=== PATIENT | male | born 2000 | race African-American/Black ===

== ENCOUNTER 2021-12-04 13:25 | Emergency (ER) | payer SELFPAY ==
[~2021-12-04] VITALS: Ht 162.6 cm; Wt 49.9 kg
--- NOTE | 2021-12-04 13:47 | NUR ---
To ER bed 13, c/o nausea vomiting, weak x 1 week, had a drink last Monday, per patient he doesn't usually drink, aaox3, breathing even and non labored, connected to monitor, awaiting md orders
--- NOTE | 2021-12-04 13:55 | NUR ---
IV LINE IS ESTABLISHED, BLOOD SPECIMEN COLLECTED AND SENT TO THE LAB. THE LINE IS SALINE LOCKED.
--- NOTE | 2021-12-04 13:56 | NUR ---
The patient is presented to ER for c/o nausea vomiting, weak x 1 week. The patient is alert and oriented x4. In room air and denies SOB. Respiration regular and unlabored. Will continue to monitor the patient.
[2021-12-04] MEDS ORDERED: IV NS 0.9% 1,000 ML BAG IV ONE ×2 (14:00→17:00)
[2021-12-04 14:07] LABS: BASOPHILS % (AUTO) 0.4 % (0.0-2.0); EOSINOPHILS % (AUTO) 0.7 % (0.0-6.0); HEMATOCRIT 52 % (39-51); HEMOGLOBIN 17.8 g/dL (13.5-17.5); LYMPHOCYTES # (AUTO) 1.5 K/uL (0.8-4.8); MEAN CORPUSCULAR HGB CONC 35 g/dl (31.0-36.0); MEAN CORPUSCULAR VOLUME 89 fL (80-96); MONOCYTES # (AUTO) 0.8 K/uL (0.1-1.30); MONOCYTES % (AUTO) 9.5 % (2.0-12.0); NEUTROPHILS # (AUTO) 5.7 K/uL (1.8-8.9); NEUTROPHILS % (AUTO) 71.4 % (43.0-81.0); PLATELET COUNT (AUTO) 263 K/uL (150-450)
[2021-12-04 14:24] LABS: BILIRUBIN,DIRECT 0.4 mg/dL (0.0-0.2); BILIRUBIN,TOTAL 4.2 mg/dL (0.2-1.0); CALCIUM, SERUM 10.1 mg/dL (8.5-10.1); CREATININE 1.2 mg/dL (0.6-1.3); POTASSIUM 3.8 mmol/L (3.5-5.1); TOTAL PROTEIN, SERUM 8.6 g/dL (6.4-8.2)
--- NOTE | 2021-12-04 14:29 | NUR ---
[employer] school technology teacher at the bedside
[2021-12-04] MEDS ORDERED: FAMOTIDINE/PF INJ 20 MG/2 ML VIAL IV ONE ×2 (15:00→15:10)
[2021-12-04 15:16] LABS: BILIRUBIN,URINE MODERATE (NEGATIVE); COLOR,URINE YELLOW (YELLOW); LEUKOCYTE ESTERASE ,URINE NEGATIVE (NEGATIVE); NITRITE, URINE NEGATIVE (NEGATIVE); PROTEIN,URINE TRACE mg/dl (NEGATIVE); UGLUCOSE NEGATIVE (NEGATIVE)
[2021-12-04] MEDS ORDERED: ONDANSETRON HCL/PF 4 MG/2 ML VIAL ONE (15:28)
[2021-12-04] MEDS ORDERED: ONDANSETRON HCL/PF - ER 4 MG/2 ML VIAL IV ONE (15:30)
[2021-12-04 15:34] LABS: BACTERIA,URINE 1+ /HPF (None Seen); MUCUS,URINE Many /LPF (None Seen); WBC,URINE 0-2 /HPF (0-3)
[2021-12-04] MEDS ORDERED: diphenhydrAMINE HCL 50 MG/ML VIAL IV ONE (17:00)
[2021-12-04] MEDS ORDERED: PROCHLORPERAZINE EDISYLATE 10 MG/2 ML VIAL IVP ONE (17:00)
[2021-12-04] MEDS ORDERED: diphenhydrAMINE HCL 50 MG/ML VIAL ONE ×2 (17:02→17:26)
[2021-12-04] MEDS ORDERED: PROCHLORPERAZINE EDISYLATE 10 MG/2 ML VIAL ONE ×2 (17:02→17:27)
--- NOTE | 2021-12-04 18:30 | NUR ---
po challenge tolerated well
[2021-12-04 19:08] VITALS: BP 118/62
--- NOTE | 2021-12-04 19:08 | NUR ---
IV removed. Catheter intact and site benign. Pressure and 4x4 applied to site. No bleeding noted.Patient discharged to home in stable condition. Written and verbal after care instructions given. Patient verbalizes understanding of instruction.
[2021-12-05] MEDS ORDERED: ONDA4TAB11 SL (18:08)
[2021-12-05] MEDS ORDERED: METO10TA3 PO (18:17)
[2021-12-05] MEDS ORDERED: LEVO25TA7 PO (18:39)
[2021-12-05] MEDS ORDERED: ALBU1.257 IH (18:39)
[2021-12-05] MEDS ORDERED: PANT40TA2 PO (18:43)
== END 2021-12-04 19:08 | disposition home or self-care (01) ==
LOC: ER 13:45
DX: R10.10 Upper abdominal pain, unspecified (principal); R11.10 Vomiting, unspecified; F12.90 Cannabis use, unspecified, uncomplicated; F10.10 Alcohol abuse, uncomplicated; J45.909 Unspecified asthma, uncomplicated
CPT/HCPCS: 36415; 71045; 80048; 80076; 80307; 80320; 81001; 83690; 84484 ×2; 85025; 93005; 96361; 96374; 96375; 99285; J0780; J1200; J2405; J3490; J7030 ×3; G0480

== ENCOUNTER 2021-12-05 17:43 | Inpatient (IN) | payer OTHER ==
[~2021-12-05] VITALS: Ht 162.6 cm; Wt 52.6 kg
--- NOTE | 2021-12-05 17:55 | NUR ---
BIBMOM FOR VOMITING X 8 DAYS. PT WAS SEEN HERE YESTERDAY. AMBULATORY, PLACED ON BED, AAOX4, BREATHING EVEN AND UNLABORED.
[2021-12-05] MEDS ORDERED: ONDA4TAB11 SL (18:08)
[2021-12-05] MEDS ORDERED: METO10TA3 PO (18:17)
--- NOTE | 2021-12-05 18:24 | NUR ---
MOVE SHEET SUBMITTED.
--- NOTE | 2021-12-05 18:27 | NUR ---
IV LINE ESTABLISHED ON LAC #20, BLOOD DRAWN AND SENT TO LAB. COVID SWAB DONE AND SENT TO LAB.
[2021-12-05] MEDS ORDERED: PROCHLORPERAZINE EDISYLATE 10 MG/2 ML VIAL IVP ONE (18:30)
[2021-12-05] MEDS ORDERED: diphenhydrAMINE HCL 50 MG/ML VIAL IV ONE (18:30)
[2021-12-05] MEDS ORDERED: IV NS 0.9% 1,000 ML BAG IV ONE (18:30)
[2021-12-05] MEDS ORDERED: diphenhydrAMINE HCL 50 MG/ML VIAL ONE (18:33)
[2021-12-05] MEDS ORDERED: PROCHLORPERAZINE EDISYLATE 10 MG/2 ML VIAL ONE (18:33)
[2021-12-05] MEDS ORDERED: ALBU1.257 IH (18:39)
[2021-12-05] MEDS ORDERED: LEVO25TA7 PO (18:39)
[2021-12-05] MEDS ORDERED: PANT40TA2 PO (18:43)
[2021-12-05 19:24] LABS: CALCIUM, SERUM 8.9 mg/dL (8.5-10.1); CREATININE 1.1 mg/dL (0.6-1.3)
--- NOTE | 2021-12-05 19:26 | NUR ---
DR. APONTE SPEAKING WITH DR. CORRAL.
--- NOTE | 2021-12-05 19:31 | NUR ---
[facility] CALLED TRAUMA SURGEON PAGED.
[2021-12-05 19:46] LABS: BASOPHILS % (AUTO) 0.5 % (0.0-2.0); EOSINOPHILS % (AUTO) 0.2 % (0.0-6.0); HEMATOCRIT 52 % (39-51); HEMOGLOBIN 17.6 g/dL (13.5-17.5); LYMPHOCYTES # (AUTO) 1.5 K/uL (0.8-4.8); LYMPHOCYTES % (AUTO) 20.7 % (20.0-44.0); MEAN CORPUSCULAR HGB CONC 34 g/dl (31.0-36.0); MEAN CORPUSCULAR VOLUME 91 fL (80-96); MONOCYTES # (AUTO) 0.5 K/uL (0.1-1.30); MONOCYTES % (AUTO) 7.2 % (2.0-12.0); NEUTROPHILS # (AUTO) 5.2 K/uL (1.8-8.9); NEUTROPHILS % (AUTO) 71.4 % (43.0-81.0); PLATELET COUNT (AUTO) 253 K/uL (150-450); RED BLOOD CELL COUNT(AUTO) 5.73 MIL/uL (4.5-6.0); WHITE BLOOD COUNT (AUTO) 7.3 K/uL (4.3-11.0)
[2021-12-05 20:21] LABS: POTASSIUM 3.3 mmol/L (3.5-5.1)
--- NOTE | 2021-12-05 20:58 | NUR ---
MS [id number]
[2021-12-05] MEDS: IV NS 0.9% 1,000 ML IV SCH (21:00)
[2021-12-05] MEDS ORDERED: ZOLPIDEM TARTRATE 5 MG TABLET PO PRN (21:00)
[2021-12-05] MEDS ORDERED: PROCHLORPERAZINE EDISYLATE 10 MG/2 ML VIAL IVP PRN (21:00)
[2021-12-05] MEDS ORDERED: Z GUARD REMEDY 4 OZ OINT TP PRN (21:00)
[2021-12-05] MEDS ORDERED: MAG HYDROX/AL HYDROX/SIMETH 30 ML UDC PO PRN (21:00)
[2021-12-05] MEDS ORDERED: MAGNESIUM HYDROXIDE 30 ML UDC PO PRN (21:00)
[2021-12-05] MEDS ORDERED: ACETAMINOPHEN 325 MG TABLET PO PRN (21:00)
--- NOTE | 2021-12-05 21:17 | NUR ---
called for report, RN will call back.
--- NOTE | 2021-12-05 21:31 | NUR ---
REPORT GIVEN TO PALAK FLAHERTY [id number] FOR EMMA
--- NOTE | 2021-12-05 21:31 | NUR ---
Tiki stanton in [facility] - 12/05/21 at 2131 by TRACY REPORT GIVEN TO PALAK BECKHAM EMMA
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
[2021-12-05] MEDS: POTASSIUM CL. PREMIX PERIPHER. 50 ML IV SCH ×2 (22:08→22:54)
[2021-12-05] MEDS: ONDANSETRON HCL/PF 4 MG/2 ML VIAL IVP PRN (23:15)
--- NOTE | 2021-12-05 23:44 | NUR ---
MS RN NOTE PATIENT C/O CRUSHING CHEST PAIN, N/V WITH X4 EPISODES OF EMESIS NOW. UNRELIEVED WITH ZOFRAN. MADE CHANGE NURSE PALAK AWARE, CHARGE SAID TO ORDER STAT EKG. WILL MONITOR. PATIENT STARTED ON O2 2LPM VIA NC FOR COMFORT. SATURATION 100%.
[2021-12-06] VITALS: BP 115/73
[2021-12-06] MEDS: POTASSIUM CL. PREMIX PERIPHER. 50 ML IV SCH ×2 (00:45→02:38)
[2021-12-06 01:05] VITALS: BP 115/73
--- NOTE | 2021-12-06 01:12 | NUR ---
MS RN NOTE EKG CAME OUT SR. REPORTED TO PRESS WORKER HELPER DOCTOR, DR. LIZAMA. NO NEW ORDERS PER DOCTOR.
[2021-12-06 06:07] LABS: BASOPHILS # (AUTO) 0.1 K/uL (0.0-0.2); BASOPHILS % (AUTO) 0.7 % (0.0-2.0); EOSINOPHILS % (AUTO) 1.4 % (0.0-6.0); HEMATOCRIT 43 % (39-51); HEMOGLOBIN 14.5 g/dL (13.5-17.5); LYMPHOCYTES # (AUTO) 2.8 K/uL (0.8-4.8); MEAN CORPUSCULAR HGB CONC 34 g/dl (31.0-36.0); MEAN CORPUSCULAR VOLUME 90 fL (80-96); MONOCYTES # (AUTO) 0.9 K/uL (0.1-1.30); MONOCYTES % (AUTO) 10.9 % (2.0-12.0); NEUTROPHILS # (AUTO) 4.2 K/uL (1.8-8.9); PLATELET COUNT (AUTO) 195 K/uL (150-450); RED BLOOD CELL COUNT(AUTO) 4.75 MIL/uL (4.5-6.0)
[2021-12-06] MEDS: IV NS 0.9% 1,000 ML IV SCH (07:20)
--- NOTE | 2021-12-06 07:20 | NUR ---
ms rn note NEEDS ATTENDED. REPORT GIVEN TO ANI FOR CONTINUITY OF CARE.
--- NOTE | 2021-12-06 07:30 | NUR ---
MS RN NOTES RECEIVED PATIENT AWAKE IN BED. ALERT AND ORIENTED TIMES 4. NO PAIN NOTED. NO SOB NOTED. ABLE TO MAKE NEEDS KNOWN. NO EPISODE OF VOMITING AT THIS TIME. NO NAUSEA NOTED. LAC IV SITE # 20 INTACT.ELEVATE HEAD OF THE BED FOR FOR ASPIRATION PRECAUTION. ALL NEEDS ATTENDED. ALL SAFETY PRECAUTION IN PLACE. BED LOCKED IN THE LOWEST POSITION. CALL LIGHT AND TABLE IN EASY REACH. WILL CONTINUE TO MONITOR.
[2021-12-06 07:37] LABS: CALCIUM, SERUM 8.5 mg/dL (8.5-10.1); CREATININE 1.1 mg/dL (0.6-1.3); MAGNESIUM 1.9 mg/dL (1.8-2.4); PHOSPHORUS 3.5 mg/dL (2.5-4.9); POTASSIUM 3.9 mmol/L (3.5-5.1)
[2021-12-06 08:31] VITALS: BP 107/56
[2021-12-06] MEDS: LEVOTHYROXINE SODIUM 25 MCG TABLET PO SCH (08:46)
[2021-12-06] MEDS: PANTOPRAZOLE 40 MG VIAL IV SCH (08:50)
[2021-12-06] MEDS: ONDANSETRON HCL/PF 4 MG/2 ML VIAL IVP PRN ×2 (09:36→19:37)
[2021-12-06] MEDS: IV D5/ 0.9% NACL 1,000 ML IV SCH ×2 (09:57→23:09)
[2021-12-06 13:41] LABS: ALBUMIN 3.4 g/dL (3.4-5.0); BILIRUBIN,DIRECT 0.5 mg/dL (0.0-0.2); BILIRUBIN,TOTAL 2.9 mg/dL (0.2-1.0); TOTAL PROTEIN, SERUM 6.3 g/dL (6.4-8.2)
[2021-12-06 16:31] VITALS: BP 117/48
--- NOTE | 2021-12-06 18:44 | NUR ---
NM: GASTRIC EMPTYING WAS COMPLETED:TECH:RB.
--- NOTE | 2021-12-06 19:30 | NUR ---
RN OPENING NOTES RECEIVED PT IN BED, AWAKE WITH MOTHER AT BEDSIDE. AOx4, ABLE TO MAKE NEEDS KNOWN. ON RA AND TOLERATING WELL. NO SOB NOTED. NO S/SX OF RESPIRATORY DISTRESS NOTED. IV ACCESS IN LAC #20G RUNNING D5NS @ 75 ML/HR. SAFETY PRECAUTIONS IN PLACE: BED IN LOWEST, LOCKED POSITION, SIDERAILS UPx2, AND BRAKES ON. TABLE AND CALL LIGHT WITHIN REACH. WILL CONTINUE TO MONITOR.
--- NOTE | 2021-12-06 19:30 | NUR ---
MS RN CLOSING NOTES PATIENT AWAKE IN BED. ALERT AND ORIENTED TIMES 4.MOTHER AT HIS BED SIDE. NO PAIN NOTED. NO SOB NOTED. ABLE TO MAKE NEEDS KNOWN. NO EPISODE OF VOMITING AT THIS TIME. NO NAUSEA NOTED. LAC IV SITE # 20 INTACT RUNNING D5NS AT 75 ML/HR.ELEVATE HEAD OF THE BED FOR FOR ASPIRATION PRECAUTION. ALL NEEDS ATTENDED. ALL SAFETY PRECAUTION IN PLACE. BED LOCKED IN THE LOWEST POSITION. CALL LIGHT AND TABLE IN EASY REACH. WILL ENDORSE FOR EMMA.
[2021-12-06] MEDS ORDERED: METOCLOPRAMIDE HCL 10 MG/2 ML VIAL IV ONE (22:00)
--- NOTE | 2021-12-06 22:16 | NUR ---
RN NOTES PT STILL HAVING VOMITTING EPISODE AFTER BEING GIVEN ZOFRAN. CONTACTED LOIS CARO WHO ORDERED REGLAN 10 MG IV ONCE. ADMINISTERED TO PATIENT. EDUCATION GIVEN. WILL CONTINUE TO MONITOR.
--- NOTE | 2021-12-07 06:46 | NUR ---
RN CLOSING NOTES PT IN BED, ASLEEP, AWAKENS TO VERBAL STIMULI. AOx4, ABLE TO MAKE NEEDS KNOWN. ON RA AND TOLERATING WELL. NO SOB NOTED. NO S/SX OF RESPIRATORY DISTRESS NOTED. IV ACCESS IN LAC #20G RUNNING D5NS @ 75 ML/HR. ALL ORDERS CARRIED OUT. ALL NEEDS MET. PT KEPT CLEAN AND DRY. TREATED VOMITING DURING SHIFT. SAFETY PRECAUTIONS IN PLACE: BED IN LOWEST, LOCKED POSITION, SIDERAILS UPx2, AND BRAKES ON. TABLE AND CALL LIGHT WITHIN REACH. WILL ENDORSE TO ONCOMING SHIFT FOR EMMA.
[2021-12-07] MEDS: LEVOTHYROXINE SODIUM 25 MCG TABLET PO SCH (07:30)
--- NOTE | 2021-12-07 07:40 | NUR ---
MS RN OPENING NOTES PATIENT RECEIVED IN BED AND SLEEPING. OBSERVED ON RA AND TOLERATING WELL. NO SOB OR S/SX OF RESPIRATORY DISTRESS OBSERVED AT THIS TIME. IV ACCESS IN LAC PATENT AND RUNNING WELL. SAFETY PRECAUTIONS IN PLACE WITH BED IN LOWEST POSITION, LOCKED AND SIDERAILS UPx2. CALL LIGHT WITHIN REACH. WILL CONTINUE TO MONITOR.
[2021-12-07 08:00] VITALS: BP 132/66
[2021-12-07] MEDS: PANTOPRAZOLE 40 MG VIAL IV SCH (09:32)
[2021-12-07] MEDS: IV D5/ 0.9% NACL 1,000 ML IV SCH (12:38)
[2021-12-07 16:00] VITALS: BP 117/55
--- NOTE | 2021-12-07 18:45 | NUR ---
RN CLOSING NOTES PATIENT REMAINED IN BED THROUGHOUT SHIFT, HE CONTINUES ON BEDREST STATUS. REMAINS NPO AND UNABLE TO TOLERATE ORAL INTAKE. CONTINUES ON RA AND TOLERATING WELL. NO SOB OR S/SX OF RESPIRATORY DISTRESS OBSERVED DURING SHIFT. IV ACCESS IN LAC CONTINUES TO BE PATENT AND RUNNING WELL. SAFETY PRECAUTIONS REMAIN IN PLACE WITH BED IN LOWEST POSITION, LOCKED AND SIDERAILS UPx2. CALL LIGHT WITHIN REACH. WILL CONTINUE TO MONITOR.
--- NOTE | 2021-12-07 19:30 | NUR ---
NIMO FULLY AWAKE, BROTHER AT BEDSIDE. OR STAFF CAME, PATIENT FOR EGD. PATIENT WANTED HIS MOTHER TO SIGN CONSENT STATED HE IS TOO WEAK. MOTHER OF PATIENT TO COME TO SIGN CONSENT, OR STAFF LEFT, STATED WILL TAKE PATIENT IN FEW MINUTES. IV TO HL FOR NOW, CHECKLIST STARTED. STAT OTHER LABS ORDERED PER CHECKLIST.
--- NOTE | 2021-12-07 19:45 | NUR ---
RN MS NOTES PT IN BED, AWAKE, ALERT AND ORIENTED, PER SURGERY, NO SCHEDULE FOR EGD TODAY, PT'S MOM WENT HOME, THEN SURGERY STAFF CAME TO FLOOR TILING PROFESSIONAL PT FOR EGD, PT INFORMED, PT'S MOM INFORMED AND SHE IS ON HER WAY BACK TO THE HOSPITAL TO BE WITH PT WHILE HE SIGNS THE CONSENT FORMS, ENDORSED TO SOUP MIXER NURSE FOR CONTINUITY OF CARE.
[2021-12-07 20:00] VITALS: BP 118/69
--- NOTE | 2021-12-07 20:15 | NUR ---
MSRN PATIENT S' MOTHER CAME CONSENTS SIGNED, WANTED TO SPEAK TO ANESTHESIOLOGIST.
--- NOTE | 2021-12-07 22:10 | NUR ---
MSRN CN NOTIFIED, PER DR APONTE TO RESCHED PATIENT POSSIBLY IN AM FOR EGD. MOTHER AND PATIENT NOTIFIED . WILL KEEP PATIENT NPO
[2021-12-08] MEDS: IV D5/ 0.9% NACL 1,000 ML IV SCH ×2 (01:49→15:51)
--- NOTE | 2021-12-08 04:44 | NUR ---
MSRN ASLEEP EASILY AWAKENED. PRESENT IVFF INFUSING WELL. NO NEEDS MADE.
[2021-12-08 06:37] LABS: BASOPHILS % (AUTO) 0.6 % (0.0-2.0); EOSINOPHILS % (AUTO) 4.1 % (0.0-6.0); HEMATOCRIT 42 % (39-51); HEMOGLOBIN 14.3 g/dL (13.5-17.5); LYMPHOCYTES # (AUTO) 2.4 K/uL (0.8-4.8); LYMPHOCYTES % (AUTO) 37.9 % (20.0-44.0); MEAN CORPUSCULAR HGB CONC 34 g/dl (31.0-36.0); MEAN CORPUSCULAR VOLUME 89 fL (80-96); MONOCYTES # (AUTO) 0.8 K/uL (0.1-1.30); MONOCYTES % (AUTO) 12.1 % (2.0-12.0); NEUTROPHILS # (AUTO) 2.9 K/uL (1.8-8.9); NEUTROPHILS % (AUTO) 45.3 % (43.0-81.0); PLATELET COUNT (AUTO) 196 K/uL (150-450); RED BLOOD CELL COUNT(AUTO) 4.69 MIL/uL (4.5-6.0); WHITE BLOOD COUNT (AUTO) 6.3 K/uL (4.3-11.0)
--- NOTE | 2021-12-08 06:40 | NUR ---
MSRN IVF CONTINUED, KEPT NPO. EGD SCHED PENDING
[2021-12-08 07:00] LABS: ALBUMIN 3.4 g/dL (3.4-5.0); BILIRUBIN,TOTAL 2.4 mg/dL (0.2-1.0); CALCIUM, SERUM 8.6 mg/dL (8.5-10.1); CREATININE 0.9 mg/dL (0.6-1.3); MAGNESIUM 1.8 mg/dL (1.8-2.4); POTASSIUM 3.1 mmol/L (3.5-5.1); TOTAL PROTEIN, SERUM 6.2 g/dL (6.4-8.2)
--- NOTE | 2021-12-08 07:20 | NUR ---
RN MS OPENING NOTES: RECEIVED PT IN BED, AWAKE, ALERT AND ORIENTED X4. PATIENT IN NO APPARENT DISTRESS OR DISCOMFORT. ABLE TO MAKE NEEDS KNOWN. PATIENT ON RA. BREATHING EVEN AND UNLABORED. VS STABLE. PT. HAS BRP AND IS ABLE TO GO OUT OF BED WITHOUT ANY ISSUES. IV ON LEFT AC 20G AND RUNNING D5NS AT 75ML/HR. NO REDNESS, INFLAMMATION OR SIGNS OF INFILTRATION ON IV SITE. BED IN LOWEST AND LOCKED POSITION. RAILS UP X2. CALL LIGHT WITHIN REACH. WILL CONTINUE TO MONITOR.
[2021-12-08] MEDS: LEVOTHYROXINE SODIUM 25 MCG TABLET PO SCH (07:30)
[2021-12-08 08:00] VITALS: BP 113/51
[2021-12-08] MEDS: PANTOPRAZOLE 40 MG VIAL IV SCH (08:27)
[2021-12-08] MEDS: POTASSIUM CL. PREMIX PERIPHER. 50 ML IV SCH ×4 (10:27→14:54)
--- NOTE | 2021-12-08 13:00 | NUR ---
PT. WAS CHANGED FROM NPO TO CLEAR LIQUID DIET STARTING LUNCH. PT. CONSUMED 100% OF MEAL BUT THREW UP AFTER A FEW MINUTES OF FINISHING HIS MEAL. PT. STATES "IT FEELS LIKE THE FOOD IS NOT GOING DOWN. BUT AT LEAST I HAVE SOME ENERGY NOW". PT. REFUSED TO TAKE ANY MEDICATION. WILL INFORM MD AND CONTINUE TO MONITOR.
--- NOTE | 2021-12-08 13:27 | NUR ---
MS RN NOTE: INFORMED DR. DELGADO ABOUT PT. VOMITTING AFTER LUNCH WHEN CHANGED FROM NPO TO CLEAR LIQUID. SAID TO JUST CONTINUE CLEAR LIQUID DIET FOR NOW.
[2021-12-08 16:00] VITALS: BP 103/70
[2021-12-08] MEDS: ENSURE CLEAR 237 ML LIQUID (MIX BERRY) PO SCH (17:09)
--- NOTE | 2021-12-08 19:20 | NUR ---
MS RN CLOSING NOTES PT REMAINS IN BED, AWAKE, ALERT AND ORIENTED X4. MOTHER AT BEDSIDE. ON ROOM AIR. NO SIGNS OF RESPIRATORY DISTRESS. BREATHING EVEN AND UNLABORED. PATIENT IN NO APPARENT DISTRESS OR DISCOMFORT. ABLE TO MAKE NEEDS KNOWN. VS STABLE. PT. ABLE TO AMBULATE TO THE RESTROOM WITH MIN ASSIST. PT. STARTED ON LIQUID DIET AT NOON BUT HAVING MULTIPLE EPISODES OF EMESIS. PT. STATES HE FEELS A LITTLE WEAK BUT BETTER COMPARED TO WHEN HE WAS NPO. PT. STATES, HE FEELS LIKE EVERYTHING THAT HE CONSUMES DOESN'T WANT TO GO DOWN. DENIES ANY DIZZINESS OR NAUSEA. MD NOTIFIED AND ADVISED TO JUST CONTINUE CLEAR LIQUID DIET. IV ON LEFT AC 20G AND RUNNING D5NS AT 75ML/HR. NO REDNESS, INFLAMMATION OR SIGNS OF INFILTRATION ON IV SITE. BED IN LOWEST AND LOCKED POSITION. RAILS UP X2. CALL LIGHT WITHIN REACH. WILL CONTINUE TO MONITOR.
--- NOTE | 2021-12-08 19:48 | NUR ---
MS RN OPENING NOTES: RECEIVED PATIENT AWAKE IN BED, ACCOMPANIED BY FAMILY BED IN LOW POSITION CALL LIGHTS WITHIN REACH, NO COMPLAIN OF PAIN AND DISCOMFORT AT THIS TIME ON ROOM AIR SATURATING WELL, PATIENT IS A/OX4, AMBULATORY, ABLE TO MAKE NEEDS KNOWN, WITH IV LINE AT LFA#20 WITH D5NS@75ML/HOUR INFUSING WELL, PATIENT KEPT CLEAN AND DRY ALL NEEDS MET WILL CONTINUE TO MONITOR.
[2021-12-08 20:00] VITALS: BP 123/78
[2021-12-09] MEDS: ONDANSETRON HCL/PF 4 MG/2 ML VIAL IVP PRN (00:19)
[2021-12-09] MEDS: IV D5/ 0.9% NACL 1,000 ML IV SCH ×2 (05:11→18:04)
--- NOTE | 2021-12-09 06:16 | NUR ---
MS RN CLOSING NOTES: PATIENT SLEEP IN BED COMFORTABLY, AROUSABLE TO VERBAL STIMULI, BED IN LOW POSITION CALL LIGHTS WITHIN REACH, NO COMPLAIN OF PAIN AND DISCOMFORT AT THIS TIME , AMBULATORY, A/OX4 ABLE TO MAKE NEEDS KNOWN, ON ROOM AIR SATURATING WELL, PATIENT KEPT CLEAN AND DRY ALL NEEDS MET, ENDORSE TO INCOMING SHIFT.
[2021-12-09 07:01] LABS: CALCIUM, SERUM 8.6 mg/dL (8.5-10.1); POTASSIUM 3.3 mmol/L (3.5-5.1)
[2021-12-09] MEDS: LEVOTHYROXINE SODIUM 25 MCG TABLET PO SCH (07:30)
[2021-12-09 08:00] VITALS: BP 97/47
[2021-12-09] MEDS: ENSURE CLEAR 237 ML LIQUID (MIX BERRY) PO SCH ×3 (08:00→17:00)
--- NOTE | 2021-12-09 08:01 | NUR ---
MS RN OPENING NOTES: RECEIVED PATIENT AWAKE IN BED, ALERT AND ORIENTED X 4 AND ABLE TO VERBALIZED NEEDS. NO SOB OR CARDIAC DISTRESS NOTED, AFEBRILE AND ON ROOM AIR TOLERATING WELL. NO EPISODES OF NAUSEA AT THIS TIME. DENIES PAIN AT THIS TIME, WITH IV LINE AT LFA#20 WITH D5NS@75ML/HOUR INFUSING WELL, KEPT DRY, CLEAN AND COMFORTABLE. SAFETY PRECAUTIONS MAINTAINED: BED IN LOWEST AND IN LOCKED POSITION, SIDE RAILS UP X 2. CALL LIGHT IN EASY REACH FOR HELP/ASSISTANCE.
[2021-12-09] MEDS: PANTOPRAZOLE 40 MG VIAL IV SCH (09:43)
[2021-12-09] MEDS ORDERED: POTASSIUM CHLORIDE 20 MEQ POWDER PACKET PO SCH (10:00)
[2021-12-09] MEDS ORDERED: POTASSIUM CL. PREMIX PERIPHER. 50 ML IV ONE ×2 (10:30→12:00)
--- NOTE | 2021-12-09 12:10 | NUR ---
RN NOTES: PATIENT VOMITED 2X YELLOWISH COLORED VOMITUS AND PER PATIENT HE'S HAVING STOMACH UPSET, INFORMED DR CHE, AND PER DR CHE STATED "IM AWARE".
--- NOTE | 2021-12-09 14:29 | NUR ---
RN NOTES: INFORMED DR CHE THAT MOTHER OF THE PATIENT MS LANCE WANTED TO TALL TO HIM, RN GAVE EPIC GROUP NUMBER AND DR CHE MADE AWARE.
[2021-12-09 16:00] VITALS: BP 97/50
--- NOTE | 2021-12-09 18:46 | NUR ---
MS RN CLOSING NOTES: PATIENT AWAKE IN BED WITH FAMILY AT BED SIDE , ALERT AND ORIENTED X 4 AND ABLE TO VERBALIZED NEEDS. NO SOB OR CARDIAC DISTRESS NOTED, AFEBRILE AND ON ROOM AIR TOLERATING WELL. NO EPISODES OF NAUSEA AT THIS TIME. DENIES PAIN AT THIS TIME, WITH IV LINE AT LFA#20 WITH D5NS@75ML/HOUR INFUSING WELL, KEPT DRY, CLEAN AND COMFORTABLE. SAFETY PRECAUTIONS MAINTAINED: BED IN LOWEST AND IN LOCKED POSITION, SIDE RAILS UP X 2. CALL LIGHT IN EASY REACH FOR HELP/ASSISTANCE. ENDORSED TO SCROLL SHEAR OPERATOR FOR EMMA.
--- NOTE | 2021-12-09 19:54 | NUR ---
MS RN OPENING NOTES; RECEIVED PATIENT AWAKE IN BED ACCOMPANIED BY FAMILY, BED IN LOW POSITION CALL LIGHTA WITHIN REACH, ON ROOM AIR SATURATING WELL, PATIENT IS A/OX4 AMBULATORY ABLE TO MAKE NEEDS KNOWN, WITH IV LINE AT LFA#20 WITH ONGOING D5 [id number]/HR INFUSING WELL, PATIENT KEPT CELAN AND DRY ALL NEEDS MET WILL CONTINUE TO MONITOR.
[2021-12-09 20:00] VITALS: BP 115/48
[2021-12-10] MEDS: LEVOTHYROXINE SODIUM 25 MCG TABLET PO SCH (07:30)
--- NOTE | 2021-12-10 07:30 | NUR ---
RN MS NOTES PT IN BED, AWAKE, ALERT AND ORIENTED, PAIN MEDICATION GIVEN FOR PAIN MANAGEMENT ORDERED, NOT IN DISTRESS, TOLERATES ROOM AIR, IV FLUIDS INFUSING WELL, CALL LIGHT WITHIN REACH, ABLE TO AMBULATE TO THE BATHROOM, NEEDS ATTENDED.
[2021-12-10 07:42] LABS: CALCIUM, SERUM 8.3 mg/dL (8.5-10.1); CREATININE 0.9 mg/dL (0.6-1.3); POTASSIUM 3.3 mmol/L (3.5-5.1)
--- NOTE | 2021-12-10 07:49 | NUR ---
MS RN CLOSING NOTES: PATIENT SLEEP IN BED COMFORTABLY, AROUSABLE TO VERBAL STIMULI, BED IN LOW POSITION CALL LIGHTS WITHIN REACH, NO COMPLAIN OF PAIN AND DISCOMFORT AT THIS TIME ON ROOM AIR SATURATING WELL, PATIENT IS A/OX4 AMBULATORY ABLE TO MAKE NEEDS KNOWN , WITH ONGOING IV AT LFA#20 WITH D5NS @75ML/HR INFUSING WELL, PATIENT KEPT CLEAN AND DRY ALL NEEDS MET ENDORSE TO INCOMING SHIFT.
[2021-12-10 08:00] VITALS: BP 103/70
[2021-12-10] MEDS: PANTOPRAZOLE 40 MG VIAL IV SCH (09:27)
[2021-12-10] MEDS: ENSURE CLEAR 237 ML LIQUID (MIX BERRY) PO SCH ×3 (09:28→16:34)
[2021-12-10] MEDS: IV D5/ 0.9% NACL 1,000 ML IV SCH ×2 (09:38→21:05)
[2021-12-10] MEDS: POTASSIUM CL. PREMIX PERIPHER. 50 ML IV SCH ×2 (11:16→16:37)
[2021-12-10 16:00] VITALS: BP 100/66
--- NOTE | 2021-12-10 18:35 | NUR ---
RN CLOSING NOTE PATIENT AO X4. OBSERVED AWAKE AND INTERMITTENTLY SLEEPING THROUGHOUT SHIFT. UNABLE TO TOLERATE CLEAR LIQUID DIET, HE HAD EMESIS EPISODE X2. BACK ON NPO STATUS, AND EXPECTED TO HAVE EGD PROCEDURE DONE ( NO SPECIFIC TIME KNOWN). UNABLE TO TOLERATE IV POTASSIUM VIA LFA IV SITE. PATIENT STATED IV "BURNED" UPON ADMINISTRATION. DASHAWN-MIDLINE #18G PLACED. TOLERATED PROCEDURE WELL. MEDICATION ADMINISTERED VIA NEW SITE. TOLERATED WELL. ALL SAFETY MEASURES IN PLACE WITH BED AT LOWEST POSITION, LOCKED & AND SIDERAIL UP X2. CALL LIGHT WITHIN REACH. WILL CONT TO MONITOR.
--- NOTE | 2021-12-10 19:30 | NUR ---
MS RN OPENING NOTES RECEIVED PT LYING IN BED AWAKE. MOTHER ON BEDSIDE. A/O X4. NO SOB OR NOTED, TOLERATING ROOM AIR WELL. CURRENTLY NPO. DENIES PAIN OR DISCOMFORT AT THIS TIME. HAS LEFT FOREARM IV ACCESS #20G WITH D5NS RUNNING AT 75 ML/HR. SWELLING AND TENDERNESS NOTED AROUND THE IV SITE. REMOVED IV AND ELEVATED ARM. HAS LEFT UPPER ARM MIDLINE #18G AND SALINE LOCKED. NO S/S OF INFILTRATION NOTED. SAFETY PRECAUTIONS IN PLACE. WILL CONTINUE PLAN OF CARE.
[2021-12-10 20:00] VITALS: BP 101/87
[2021-12-11 06:54] LABS: BASOPHILS % (AUTO) 0.5 % (0.0-2.0); EOSINOPHILS % (AUTO) 4.9 % (0.0-6.0); HEMATOCRIT 41 % (39-51); HEMOGLOBIN 13.7 g/dL (13.5-17.5); LYMPHOCYTES # (AUTO) 1.7 K/uL (0.8-4.8); LYMPHOCYTES % (AUTO) 37.3 % (20.0-44.0); MEAN CORPUSCULAR HGB CONC 34 g/dl (31.0-36.0); MEAN CORPUSCULAR VOLUME 89 fL (80-96); MONOCYTES # (AUTO) 0.7 K/uL (0.1-1.30); MONOCYTES % (AUTO) 14.7 % (2.0-12.0); NEUTROPHILS % (AUTO) 42.6 % (43.0-81.0); PLATELET COUNT (AUTO) 221 K/uL (150-450); RED BLOOD CELL COUNT(AUTO) 4.58 MIL/uL (4.5-6.0); WHITE BLOOD COUNT (AUTO) 4.6 K/uL (4.3-11.0)
[2021-12-11 07:16] LABS: ALBUMIN 3.2 g/dL (3.4-5.0); BILIRUBIN,TOTAL 0.9 mg/dL (0.2-1.0); CALCIUM, SERUM 8.6 mg/dL (8.5-10.1); CREATININE 0.9 mg/dL (0.6-1.3); MAGNESIUM 1.8 mg/dL (1.8-2.4); PHOSPHORUS 3.7 mg/dL (2.5-4.9); POTASSIUM 3.2 mmol/L (3.5-5.1); TOTAL PROTEIN, SERUM 6.1 g/dL (6.4-8.2)
--- NOTE | 2021-12-11 07:28 | NUR ---
MS RN CLOSING NOTES PT LYING IN BED ASLEEP, EASY TO AROUSE. A/O X4. NO C/O PAIN OR DISCOMFORT AT THIS TIME. NOT IN APPARENT DISTRESS. NO SOB OR NOTED. SATURATING BETWEEN 100% ON ROOM AIR. AFEBRILE. NO C/O N/V/D/C. HAS LEFT UPPER ARM MIDLINE #18G WITH D5NS RUNNING AT 75 ML/HR. INTACT, PATENT AND FLUSHING. ALL NEEDS ATTENDED. SAFETY PRECAUTIONS IN PLACE: BED LOW AND LOCKED, SIDE RAILS UP X2, CALL LIGHT WITHIN REACH.
--- NOTE | 2021-12-11 07:35 | NUR ---
MS RN OPENING NOTES RECEIVED PT LYING IN BED ASLEEP . A/O X4. NO SOB OR DISTRESS NOTED TOLERATING ROOM AIR WELL. CURRENTLY NPO EXCEPT MEDS DENIES PAIN OR DISCOMFORT AT THIS TIME. HAS DASHAWN MIDLINE WITH D5 NS @75 ML/HR , CALL LIGHT WITHIN REACH , BED IN LOWEST POSITION . WILL CONTINUE PLAN OF CARE.
[2021-12-11] MEDS: ENSURE CLEAR 237 ML LIQUID (MIX BERRY) PO SCH ×3 (08:00→17:00)
[2021-12-11] MEDS: PANTOPRAZOLE 40 MG VIAL IV SCH (08:39)
[2021-12-11] MEDS: LEVOTHYROXINE SODIUM 25 MCG TABLET PO SCH (08:40)
[2021-12-11] MEDS: IV D5/ 0.9% NACL 1,000 ML IV SCH ×2 (09:44→22:45)
[2021-12-11] MEDS: POTASSIUM CL. PREMIX PERIPHER. 50 ML IV SCH ×4 (11:10→14:17)
[2021-12-11] MEDS ORDERED: ANESTHESIA TRAY IN PYXIS 1 EA TRAY MC ONE (16:53)
--- NOTE | 2021-12-11 17:09 | NUR ---
RN NOTE Patient brought down to surgery for EGD procedure.
--- NOTE | 2021-12-11 18:15 | NUR ---
RN NOTE Patient brought back to room 324-1. Patient is alert and awake, stable. VS as follows: BP 114/62, HR 68, RR 18, Temp 98.4, SPO2 100%. Will continue to monitor.
[2021-12-11] MEDS ORDERED: METOCLOPRAMIDE HCL 10 MG/2 ML VIAL IV PRN (18:30)
--- NOTE | 2021-12-11 19:11 | NUR ---
MS RN CLOSING NOTE Patient sitting in bed, A/O x 4, able to make needs known. Stable on room air, breathnig evenly and unlabored. No SOB or s/s of distress noted. IV access on DASHAWN midline infusing D5NS at 75 ml/hr. Patient is S/P EGD with Dr. Erickson. All needs attended to. Due meds given. Safety precautions maintained: bed in low, locked position; siderails up x 2; call light within reach. Will endorse to flavor extractor nurse for EMMA.
--- NOTE | 2021-12-11 19:30 | NUR ---
RN opening notes Pt is sitting in bed comfortably accompanied by Pt's mom. Pt is alert and orientedX4. On room air. no SOB. No S/S of distress noted. DASHAWN midline is clean, intact and infuising well D5ns @ 75 ml/hr. safety precautions is maintained. bed at low position, brakes locked, side rails upX2, hob elevated, bed alarm is on and call light is within reach. Will continue to monitor.
[2021-12-11 20:00] VITALS: BP 121/62
--- NOTE | 2021-12-12 06:40 | NUR ---
RN closing notes Pt is resting in bed comfortably. Pt is alert and orientedX4. On room air. no SOB. No S/S of distress noted. Vs is stable. DASHAWN midline is clean, intact and infuising well D5ns @ 75 ml/hr. Kept Pt clean, dry and comfortable. All needs met and attended. safety precautions is maintained. bed at low position, brakes locked, side rails upX2, hob elevated, bed alarm is on and call light is within reach. Will endorse to am nurse for EMMA.
[2021-12-12 07:13] LABS: BASOPHILS % (AUTO) 0.5 % (0.0-2.0); EOSINOPHILS % (AUTO) 2.8 % (0.0-6.0); HEMATOCRIT 39 % (39-51); HEMOGLOBIN 13.3 g/dL (13.5-17.5); LYMPHOCYTES # (AUTO) 1.9 K/uL (0.8-4.8); LYMPHOCYTES % (AUTO) 27.5 % (20.0-44.0); MEAN CORPUSCULAR HGB CONC 34 g/dl (31.0-36.0); MEAN CORPUSCULAR VOLUME 90 fL (80-96); MONOCYTES # (AUTO) 0.7 K/uL (0.1-1.30); MONOCYTES % (AUTO) 10.4 % (2.0-12.0); NEUTROPHILS # (AUTO) 4.1 K/uL (1.8-8.9); NEUTROPHILS % (AUTO) 58.8 % (43.0-81.0); PLATELET COUNT (AUTO) 213 K/uL (150-450); RED BLOOD CELL COUNT(AUTO) 4.35 MIL/uL (4.5-6.0)
[2021-12-12 08:00] VITALS: BP 107/46
[2021-12-12 08:28] LABS: BILIRUBIN,TOTAL 0.9 mg/dL (0.2-1.0); CALCIUM, SERUM 8.3 mg/dL (8.5-10.1); CREATININE 0.8 mg/dL (0.6-1.3); MAGNESIUM 1.8 mg/dL (1.8-2.4); POTASSIUM 3.5 mmol/L (3.5-5.1); TOTAL PROTEIN, SERUM 5.8 g/dL (6.4-8.2)
[2021-12-12] MEDS: LEVOTHYROXINE SODIUM 25 MCG TABLET PO SCH (09:04)
[2021-12-12] MEDS: PANTOPRAZOLE 40 MG VIAL IV SCH (09:33)
[2021-12-12] MEDS: ENSURE CLEAR 237 ML LIQUID (MIX BERRY) PO SCH ×2 (09:33→12:05)
--- NOTE | 2021-12-12 10:53 | NUR ---
MS RN OPENING NOTE Patient in bed asleep. A/O x 4. On room air, breathing evenly and unlabored. No SOB or s/s of distress noted. IV access on DASHAWN midline, infusing D5NS at 75 ml/hr. Safety precautions in place: bed in low, locked position; siderails up x 2; call light within reach. Will continue to monitor.
[2021-12-12] MEDS: IV D5/ 0.9% NACL 1,000 ML IV SCH (13:02)
[2021-12-12 16:00] VITALS: BP 111/76
--- NOTE | 2021-12-12 17:19 | NUR ---
RN NOTE Received order for discharge. Patient is A/O x 4, able to make needs known. Stable on room air, breathing evenly and unlabored. No SOB or s/s of distress noted. Patient denies any pain or discomfort at this time. Discharge instructions given both verbally and in written form, patient verbalized understanding. All belongings accounted for, belonging sheet signed. IV access removed, catheter tip intact. Pressure dressing applied, no signs of bleeding noted. ID band removed. Patient left in stable condition via private car with mother present.
== END 2021-12-12 17:01 | disposition home or self-care (01) | DRG 392 ==
LOC: ER 17:48 → MED 21:01
PROVIDERS: ADMIT Family Medicine
PROC: 05HC33Z Insertion of Infusion Device into Left Basilic Vein, Percutaneous Approach (ICD-10-PCS; principal; 2021-12-10)
PROC: 0DB68ZX Excision of Stomach, Via Natural or Artificial Opening Endoscopic, Diagnostic (ICD-10-PCS; 2021-12-11)
DX: K29.70 Gastritis, unspecified, without bleeding (principal); R11.15 Cyclical vomiting syndrome unrelated to migraine; F12.188 Cannabis abuse with other cannabis-induced disorder; E87.6 Hypokalemia; Z79.51 Long term (current) use of inhaled steroids; D75.1 Secondary polycythemia; Z79.899 Other long term (current) drug therapy; E86.9 Volume depletion, unspecified; E03.9 Hypothyroidism, unspecified; J45.909 Unspecified asthma, uncomplicated; Z72.89 Other problems related to lifestyle; K21.9 Gastro-esophageal reflux disease without esophagitis; Z87.19 Personal history of other diseases of the digestive system; Z98.890 Other specified postprocedural states
CPT/HCPCS: 36410; 36415; 80048-TC; 80053-TC; 80076-TC; 82962-TC; 83690-TC; 83735-TC; 84100-TC; 85025-TC; 85610-TC; 85730-TC; 86850-TC; 87081-TC; 88305-TC; 88313-TC; 88342; A9541; C9113; C9803; G0378; J0780; J1200; J2405; J2704; J2765; J3480; J3490; J7030; J7042; J7050

== ENCOUNTER 2022-08-22 01:50 | Emergency (ER) | payer OTHER ==
[~2022-08-22] VITALS: Ht 160 cm; Wt 65.8 kg
[~2022-08-22 01:50] MED LIST: ALBU1.257 IH; LEVO25TA7 PO; METO10TA3 PO; ONDA4TAB11 SL; PANT40TA2 PO
--- NOTE | 2022-08-22 02:15 | NUR ---
patient taken to CT
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
--- NOTE | 2022-08-22 02:24 | NUR ---
back from CT
--- NOTE | 2022-08-22 02:24 | NUR ---
CAME BACK FROM CT DEPT
--- NOTE | 2022-08-22 03:40 | NUR ---
inforemd patient having headache and neck stiffness/ pain, requesting tylenol. MD will place order.
[2022-08-22] MEDS ORDERED: ACETAMINOPHEN 325 MG TABLET ONE (03:45)
[2022-08-22] MEDS ORDERED: ACETAMINOPHEN 325 MG TABLET PO ONE (04:00)
[2022-08-22] MEDS ORDERED: KETO10TA2 PO (05:03)
[2022-08-22] MEDS ORDERED: ONDA4TAB11 PO (05:03)
--- NOTE | 2022-08-22 05:18 | NUR ---
Patient discharged to home in stable condition. Written and verbal after care instructions given. Patient verbalizes understanding of instruction.
[2022-08-22 05:22] VITALS: BP 118/59
== END 2022-08-22 05:23 | disposition home or self-care (01) ==
LOC: ER 02:07
DX: F07.81 Postconcussional syndrome (principal); M54.2 Cervicalgia; R11.10 Vomiting, unspecified; J45.909 Unspecified asthma, uncomplicated; Z79.899 Other long term (current) drug therapy; V49.9XXA Car occupant (driver) (passenger) injured in unspecified traffic accident, initial encounter; Y93.89 Activity, other specified; Y92.410 Unspecified street and highway as the place of occurrence of the external cause; Y99.8 Other external cause status
CPT/HCPCS: 70450-TC; 72125-TC

== ENCOUNTER 2024-05-30 02:37 | Emergency (ER) | payer OTHER ==
[~2024-05-30] VITALS: Ht 162.6 cm; Wt 52.6 kg
[~2024-05-30 02:37] MED LIST changes: +KETO10TA2 PO; +ONDA4TAB11 PO
[2024-05-30] MEDS ORDERED: ONDANSETRON HCL/PF 4 MG/2 ML VIAL ONE ×2 (03:48→04:33)
[2024-05-30] MEDS ORDERED: KETOROLAC TROMETHAMINE INJ 30 MG/ML VIAL ONE (03:49)
[2024-05-30] MEDS: IV NS 0.9% 1,000 ML BAG IV ONE (04:01)
[2024-05-30] MEDS: ONDANSETRON HCL/PF 4 MG/2 ML VIAL IVP ONE (04:01)
[2024-05-30] MEDS: KETOROLAC TROMETHAMINE INJ 30 MG/ML VIAL IV ONE (04:02)
[2024-05-30 04:05] LABS: BASOPHILS % (AUTO) 0.2 % (0.0-2.0); EOSINOPHILS % (AUTO) 0.1 % (0.0-6.0); HEMATOCRIT 49 % (39-51); HEMOGLOBIN 16.3 g/dL (13.5-17.5); LYMPHOCYTES # (AUTO) 0.3 K/uL (0.8-4.8); LYMPHOCYTES % (AUTO) 2.5 % (20.0-44.0); MEAN CORPUSCULAR HEMOGLOBIN 30 PG (26.0-33.0); MEAN CORPUSCULAR HGB CONC 34 g/dl (31.0-36.0); MEAN CORPUSCULAR VOLUME 90 fL (80-96); MONOCYTES # (AUTO) 1.3 K/uL (0.1-1.30); MONOCYTES % (AUTO) 10.3 % (2.0-12.0); NEUTROPHILS # (AUTO) 11.1 K/uL (1.8-8.9); NEUTROPHILS % (AUTO) 86.9 % (43.0-81.0); PLATELET COUNT (AUTO) 229 K/uL (150-450); RED BLOOD CELL COUNT(AUTO) 5.39 MIL/uL (4.5-6.0); RED CELL DISTRIBUTION WIDTH 13.6 % (11.5-15.0); WHITE BLOOD COUNT (AUTO) 12.7 K/uL (4.3-11.0)
[2024-05-30 04:19] LABS: CALCIUM, SERUM 9.5 mg/dL (8.5-10.1); CREATININE 1.1 mg/dL (0.6-1.3); POTASSIUM 4.4 mmol/L (3.5-5.1)
[2024-05-30 04:26] LABS: ALBUMIN 4.7 g/dL (3.4-5.0); BILIRUBIN,DIRECT 0.2 mg/dL (0.0-0.2); BILIRUBIN,TOTAL 1.5 mg/dL (0.2-1.0); TOTAL PROTEIN, SERUM 8.4 g/dL (6.4-8.2)
[2024-05-30] MEDS: ONDANSETRON HCL/PF 4 MG/2 ML VIAL IV ONE (04:48)
[2024-05-30] MEDS ORDERED: LIDOCAINE VISCOUS 2% UD 15 ML UDC ONE (04:51)
[2024-05-30] MEDS ORDERED: MAG HYDROX/AL HYDROX/SIMETH 30 ML UDC ONE (04:51)
[2024-05-30] MEDS: MAG HYDROX/AL HYDROX/SIMETH 30 ML UDC PO ONE (04:58)
[2024-05-30] MEDS: LIDOCAINE VISCOUS 2% UD 15 ML UDC MM ONE (04:58)
[2024-05-30 05:04] VITALS: BP 122/89; TEMP 98.1; O2SAT 99
== END 2024-05-30 05:05 | disposition home or self-care (01) ==
LOC: ER 02:39
DX: R11.2 Nausea with vomiting, unspecified (principal); F12.90 Cannabis use, unspecified, uncomplicated; J45.909 Unspecified asthma, uncomplicated; Z87.19 Personal history of other diseases of the digestive system
CPT/HCPCS: 99284; 96374; 96361; 96375; 96376; 85025; 80048; 83690; 80076; 36415; J1885; J2405 ×2; J7030